=== PATIENT | female | born 1990 | race American Indian/Alaskan Native ===

== ENCOUNTER 2017-03-21 14:37 | Emergency (ER) | payer OTHER ==
[2017-03-21 14:49] VITALS: BP 114/92
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
== END 2017-03-21 17:30 | disposition home or self-care (01) ==
LOC: ED 14:37
DX: S46.911A Strain of unspecified muscle, fascia and tendon at shoulder and upper arm level, right arm, initial encounter (principal); V89.2XXA Person injured in unspecified motor-vehicle accident, traffic, initial encounter; Y93.89 Activity, other specified; Y99.9 Unspecified external cause status; Y92.410 Unspecified street and highway as the place of occurrence of the external cause
CPT/HCPCS: 99282

== ENCOUNTER 2017-11-04 15:46 | Emergency (ER) | payer OTHER ==
[2017-11-04 16:03] VITALS: BP 131/72
[2017-11-04] MEDS ORDERED: TESSALON PERLES PO ONE (20:57)
--- NOTE | 2017-11-04 21:35 | Emergency Department Report ---
- General Chief Complaint: Upper Respiratory Infection Stated Complaint: COUGH/RUNNY NOSE Time Seen by Provider: 11/04/17 20:57 Source: patient Mode of arrival: Ambulatory Limitations: No Limitations - History of Present Illness Initial Comments: This is a 27-year-old female nontoxic, well nourished in appearance, no acute signs of distress presents to the ED with c/o of productive cough, rhinorrhea, and nasal congestion x4 days. Patient describes productive cough as well as yellow mucus production. Patient denies any chest pain, shortness of breath, wheezing, fever, chills, nausea, vomiting, headache or stiff neck. Patient denies any recent travels or localized. Denies any calf pain or calf tenderness. Patient denies any drug allergies or past medical history. MD Complaint: cough, rhinorrhea, nasal congestion -: days(s) (4) Severity: mild Consistency: constant Improves With: nothing Worsens With: nothing Associated Symptoms: denies other symptoms, rhinorrhea, nasal congestion, cough. denies: fever, chills, myalgias, diaphoresis, headache, sore throat, stiff neck, chest pain, shortness of breath, abdominal pain, nausea, vomiting, diarrhea, dysuria, rash, confusion, right sweats, weight loss, epistaxis, hoarseness, ear pain - Related Data Previous Rx's Medication Instructions Recorded Last Taken Type Cyclobenzaprine [Flexeril] 10 mg PO TID PRN #12 tablet 03/21/17 Unknown Rx Ibuprofen [Motrin] 600 mg PO Q8H PRN #25 tablet 03/21/17 Unknown Rx Azithromycin [Zithromax Z-FREDDY] 250 mg PO DAILY #6 tablet 11/04/17 Unknown Rx Benzonatate [Tessalon Perle] 100 mg PO Q6H PRN 10 Days capsule 11/04/17 Unknown Rx Allergies Allergy/AdvReac Type Severity Reaction Status Date / Time No Known Allergies Allergy Unverified 03/21/17 14:49 ED Review of Systems ROS: Stated complaint: COUGH/RUNNY NOSE Other details as noted in HPI Constitutional: denies: chills, fever Eyes: denies: eye pain, eye discharge, vision change ENT: denies: ear pain, throat pain Respiratory: cough. denies: shortness of breath, wheezing Cardiovascular: denies: chest pain, palpitations Endocrine: no symptoms reported Gastrointestinal: denies: abdominal pain, nausea, diarrhea Genitourinary: denies: urgency, dysuria, discharge Musculoskeletal: denies: back pain, joint swelling, arthralgia Skin: denies: rash, lesions Neurological: denies: headache, weakness, paresthesias Psychiatric: denies: anxiety, depression Hematological/Lymphatic: denies: easy bleeding, easy bruising ED Past Medical Hx - Past Medical History Previous Medical History?: No - Surgical History Past Surgical History?: No - Social History Smoking Status: Current Every Day Smoker Substance Use Type: Alcohol, Non Opiate Pain, Other - Medications Home Medications: Home Medications Medication Instructions Recorded Confirmed Last Taken Type Cyclobenzaprine [Flexeril] 10 mg PO TID PRN #12 tablet 03/21/17 Unknown Rx Ibuprofen [Motrin] 600 mg PO Q8H PRN #25 tablet 03/21/17 Unknown Rx Azithromycin [Zithromax Z-FREDDY] 250 mg PO DAILY #6 tablet 11/04/17 Unknown Rx Benzonatate [Tessalon Perle] 100 mg PO Q6H PRN 10 Days capsule 11/04/17 Unknown Rx ED Physical Exam - General Limitations: No Limitations General appearance: alert, in no apparent distress - Head Head exam: Present: atraumatic, normocephalic - Eye Eye exam: Present: normal appearance, PERRL, EOMI. Absent: scleral icterus, conjunctival injection, nystagmus, periorbital swelling, periorbital tenderness Pupils: Present: normal accommodation - ENT ENT exam: Present: normal exam, normal orophraynx, mucous membranes moist, TM's normal bilaterally, normal external ear exam - Neck Neck exam: Present: normal inspection, full ROM. Absent: tenderness, meningismus, lymphadenopathy, thyromegaly - Respiratory Respiratory exam: Present: normal lung sounds bilaterally. Absent: respiratory distress, wheezes, rales, rhonchi, stridor, chest wall tenderness, accessory muscle use, decreased breath sounds, prolonged expiratory - Cardiovascular Cardiovascular Exam: Present: regular rate, normal rhythm, normal heart sounds. Absent: bradycardia, tachycardia, irregular rhythm, systolic murmur, diastolic murmur, rubs, gallop - GI/Abdominal GI/Abdominal exam: Present: soft, normal bowel sounds. Absent: distended, tenderness, guarding, rebound, rigid, diminished bowel sounds - Rectal Rectal exam: Present: deferred - Extremities Exam Extremities exam: Present: normal inspection, full ROM, normal capillary refill. Absent: tenderness, pedal edema, joint swelling, calf tenderness - Back Exam Back exam: Present: normal inspection, full ROM. Absent: tenderness, CVA tenderness (R), CVA tenderness (L), muscle spasm, paraspinal tenderness, vertebral tenderness, rash noted - Neurological Exam Neurological exam: Present: alert, oriented X3, CN II-XII intact, normal gait, reflexes normal - Psychiatric Psychiatric exam: Present: normal affect, normal mood - Skin Skin exam: Present: warm, dry, intact, normal color. Absent: rash ED Course Vital Signs 11/04/17 16:00 Temperature 99.4 F Pulse Rate 86 Respiratory 20 Rate Blood Pressure 131/72 O2 Sat by Pulse 99 Oximetry - Reevaluation(s) Reevaluation #1: 11/04/17 21:46 Patient is speaking in full sentences with no signs of distress noted. ED Medical Decision Making - Medical Decision Making This is a 27-year-old female that presents with upper respiratory infection. Patient is stable and has examined by me. Chest x-ray has been obtained but patient refused as she stated she has to leave in 10 mins. PAtient was instructed and educated of my concerns and further evaluation of productive cough she states she just wants to be treated empirically and stated if symptoms worsen she will return. Patient is discharged with azithromycin and Tessalon Perles. Patient signed AMA form but I will still treat patient empirically. Patient was instructed Follow-up with a primary care doctor in 3-5 days or if symptoms worsen and continue return to emergency room as soon as possible. At time time of signing AMA form, the patient does not seem toxic or ill in appearance. No acute signs of distress noted. Patient agrees treatment plan of care. No further questions noted by the patient. Critical care attestation.: If time is entered above; I have spent that time in minutes in the direct care of this critically ill patient, excluding procedure time. ED Disposition Clinical Impression: Upper respiratory infection Qualifiers: URI type: unspecified URI Qualified Code(s): J06.9 - Acute upper respiratory infection, unspecified Disposition: LEFT AGAINST MED ADVICE Is pt being admited?: No Does the pt Need Aspirin: No Condition: Stable Instructions: Benzonatate (By mouth), Azithromycin (By mouth), Upper Respiratory Infection (ED) Additional Instructions: Follow-up with a primary care doctor in 3-5 days or if symptoms worsen and continue return to emergency room as soon as possible. Prescriptions: Azithromycin [Zithromax Z-FREDDY] 250 mg PO DAILY #6 tablet Benzonatate [Tessalon Perle] 100 mg PO Q6H PRN 10 Days capsule PRN Reason: Cough Referrals: PRIMARY CARE, [Primary Care Provider] - 3-5 Days OLGA RHODES MD [Staff Physician] - 3-5 Days [facility] [Outside] - 3-5 Days [facility] [Outside] - 3-5 Days Forms: AMA Form, Work/School Release Form(ED)
[2017-11-04] MEDS ORDERED: TRIPLE ANTIBIOTIC TP ONE (22:19)
== END 2017-11-04 22:34 | disposition left against medical advice (07) ==
LOC: ED 15:46
DX: J06.9 Acute upper respiratory infection, unspecified (principal); F17.200 Nicotine dependence, unspecified, uncomplicated
CPT/HCPCS: 99282; A6250

== ENCOUNTER 2022-05-22 16:17 | Emergency (ER) | payer SELFPAY | END 2022-05-22 16:34 | disposition left against medical advice (07) | LOC: ED 16:17 | DX: R07.9 Chest pain, unspecified (principal); Z53.21 Procedure and treatment not carried out due to patient leaving prior to being seen by health care provider ==